=== PATIENT | female | born 1965 | race Caucasian/White ===

== ENCOUNTER → 2017-09-19 | Outpatient (CLI) | payer BC ==
[~2017-09-19] MED LIST: AMITRIPTYLINE H10 MG PO; LORTAB 5-325 M1 EACH PO; PERCOCET 5/31 TABLET PO; SERTRALINE HCL50 MG PO; SKELAXIN800 MG PO
[2017-09-19 17:11] LABS: CSF PROTEIN 32 mg/dL (15-45)
[2017-09-19 17:17] LABS: GLUCOSE, CSF 61 mg/dL (40-80)
[2017-09-20 10:19] LABS: APPEARANCE CLEAR/COLORLESS; CSF EOSINOPHILS 0 % (0-25); CSF TUBE NUMBER TUBE #4; MONONUCLEAR WBC'S 0 % (50-90); POLYNUCLEAR WBC'S 0 % (0-3); RED CELL COUNT 3 /MM^3 (0-1); WHITE CELL COUNT 0 /MM^3 (0-5)
== END | disposition home or self-care (01) ==
LOC: RAD 14:32
PROVIDERS: Specialist
PROC: 009U3ZZ Drainage of Spinal Canal, Percutaneous Approach (ICD-10-PCS; principal; 2017-09-19)
DX: H53.413 Scotoma involving central area, bilateral (principal)
CPT/HCPCS: 62270; 77003; 82945; 83916 90; 84157; 87205; 87210; 88108; 89051